=== PATIENT | male | born 1950 | race Caucasian/White ===

== ENCOUNTER 2024-03-23 13:21 | Inpatient (IN) ==
[2024-03-23 14:02] LABS: ABS Lymphocytes 1.3 10^3/uL (1.0-4.8); ABS Monocytes 0.3 10^3/uL (0.0-1.1); ABS Neutrophils 2.1 10^3/uL (1.5-7.6); Hematocrit 41.4 % (38-53); Hemoglobin 14.4 g/dL (13.2-16.3); Lymphocyte % 34.5 %; Mean Corpuscular Hemoglobin 32.3 pg (27-33); Mean Corpuscular Hgb Conc 34.6 g/dL (31-36); Mean Corpuscular Volume 93.3 fL (80-97); Mean Platelet Volume 6.8 fL (7.5-11.2); Platelet Count 209 10^3/uL (150-450); Red Blood Count 4.44 10^6/uL (4.06-5.63); Red Cell Distribution Width 13.8 % (12-17); White Blood Count 3.9 10^3/uL (3.6-10.2)
[2024-03-23 14:13] LABS: INR 0.95 (0.83-1.13)
[2024-03-23] MEDS: TENECTEPLASE 50 MG VIAL KIT 5 MG/ML (reconstituted) IV ONE ×2 (14:22→14:28)
[2024-03-23 14:34] LABS: Albumin 4.1 g/dL (3.2-5.2); Albumin/Globulin Ratio 1.8 (1-3); Calcium 8.5 mg/dL (8.6-10.3); Creatinine, Serum 0.83 mg/dL (0.67-1.17); Globulin 2.3 g/dL (2-4); Potassium 3.3 mmol/L (3.5-5.0); Total Bilirubin 0.6 mg/dL (0.2-1.0); Total Protein 6.4 g/dL (6.4-8.9); eGFR CKD-EPI 92.4 (>60)
[2024-03-23 14:36] LABS: Calcium 8.7 mg/dL (8.6-10.3); Creatinine, Serum 0.85 mg/dL (0.67-1.17); Potassium 3.3 mmol/L (3.5-5.0); eGFR CKD-EPI 91.8 (>60)
[2024-03-23] MEDS: Lactated Ringers 1000 ml BAG 1,000 ML IV ONE (14:41)
[2024-03-23 14:42] LABS: Albumin 4.3 g/dL (3.2-5.2); Albumin/Globulin Ratio 1.8 (1-3); Direct Bilirubin 0.1 mg/dL (0.03-0.18); Globulin 2.4 g/dL (2-4); HDL Cholesterol 152.7 mg/dL; Indirect Bilirubin 0.5 mg/dL (0.3-1.0); Total Bilirubin 0.6 mg/dL (0.2-1.0); Total Protein 6.7 g/dL (6.4-8.9)
[2024-03-23] MEDS ORDERED: Lorazepam PYXIS KEY PRN (15:25)
[2024-03-23 15:36] LABS: High Sensitivity Troponin 1 Hr 5 pg/mL (<20)
[2024-03-23 15:39] LABS: Urine Appearance Clear; Urine Bilirubin Negative (Negative); Urine Blood Negative (Negative); Urine Color Yellow; Urine Glucose Negative (Negative); Urine Ketones Negative (Negative); Urine Nitrite Negative (Negative); Urine Protein Trace (Negative); Urine Urobilinogen Negative (Negative); Urine pH 8.5 (5.0-8.0)
[2024-03-23] MEDS ORDERED: LORazepam 2 mg VIAL 1 ml IV PUSH SCH (16:00)
[2024-03-23] MEDS ORDERED: Labetalol IV 5 MG/ML 20 ml VIAL IV PUSH PRN (16:03)
[2024-03-23] MEDS ORDERED: Famotidine IV 10 MG/ML 2 ml VIAL (20 mg) IV SLOW PU PRN (16:07)
[2024-03-23] MEDS ORDERED: methylPREDNISolone SOD SUCC 40 mg/ml 1 ml VIAL IV PRN (16:08)
[2024-03-23] MEDS: Thiamine 100 MG/ML 2 ml VIAL (200 mg) IM ONE (16:39)
[2024-03-23] MEDS: Multivitamins/Minerals TAB PO SCH (16:39)
[2024-03-23] MEDS: Iodixanol 320 (CONTRAST) 100 ML SDV IV ONE (17:17)
[2024-03-23] MEDS: Thiamine 100 MG/ML 2 ml VIAL 500 MG in NS 0.9% 250 ml 250 ML IV SCH (20:26)
[2024-03-24] MEDS: Senna TAB 8.6 mg TAB PO PRN (04:06)
[2024-03-24 04:36] LABS: ABS Monocytes 0.5 10^3/uL (0.0-1.1); ABS Neutrophils 4.1 10^3/uL (1.5-7.6); Eosinophil % 0.6 %; Hematocrit 33.3 % (38-53); Hemoglobin 11.7 g/dL (13.2-16.3); Lymphocyte % 17.6 %; Mean Corpuscular Hemoglobin 32.4 pg (27-33); Mean Corpuscular Hgb Conc 35.1 g/dL (31-36); Mean Corpuscular Volume 92.4 fL (80-97); Mean Platelet Volume 7.2 fL (7.5-11.2); Platelet Count 155 10^3/uL (150-450); Red Cell Distribution Width 13.7 % (12-17); White Blood Count 5.7 10^3/uL (3.6-10.2)
[2024-03-24 04:50] LABS: Albumin 3.5 g/dL (3.2-5.2); Albumin/Globulin Ratio 1.8 (1-3); Calcium 8.2 mg/dL (8.6-10.3); Creatinine, Serum 0.76 mg/dL (0.67-1.17); Magnesium 1.6 mg/dL (1.9-2.7); Potassium 3.1 mmol/L (3.5-5.0); Total Bilirubin 1.1 mg/dL (0.2-1.0); Total Protein 5.5 g/dL (6.4-8.9); eGFR CKD-EPI 94.9 (>60)
[2024-03-24 05:26] LABS: Calcium 8.6 mg/dL (8.6-10.3); Creatinine, Serum 0.76 mg/dL (0.67-1.17); Magnesium 1.7 mg/dL (1.9-2.7); eGFR CKD-EPI 94.9 (>60)
[2024-03-24] MEDS: Magnesium Sulfate 2 gm BAG 2 GM/50 ML BAG IVPB ONE (05:44)
[2024-03-24] MEDS: Potassium Chlor 20 meq TAB.ER PO ONE (05:44)
[2024-03-24] MEDS: KCL 20 MEQ/100 ML IVPREMIX 20 MEQ/100 ML BAG IV SCH (05:45)
[2024-03-24 08:11] LABS: Phosphorus 2.5 mg/dL (2.5-5.0)
[2024-03-24] MEDS: LORazepam 2 mg VIAL 1 ml IV PUSH SCH (16:01)
[2024-03-24] MEDS: Enoxaparin 40 MG/0.4 ML SYR SUBCUT SCH (16:09)
[2024-03-24] MEDS: Sulfur Hexaflouride MICROSPHR 25 MG VIAL IV ONE (19:56)
[2024-03-25 04:23] LABS: ABS Eosinophils 0.1 10^3/uL (0.0-0.5); ABS Lymphocytes 0.9 10^3/uL (1.0-4.8); ABS Monocytes 0.4 10^3/uL (0.0-1.1); ABS Neutrophils 2.3 10^3/uL (1.5-7.6); Hematocrit 34.7 % (38-53); Hemoglobin 12.1 g/dL (13.2-16.3); Lymphocyte % 24.5 %; Mean Corpuscular Hemoglobin 32.5 pg (27-33); Mean Corpuscular Hgb Conc 34.8 g/dL (31-36); Mean Corpuscular Volume 93.5 fL (80-97); Mean Platelet Volume 7.3 fL (7.5-11.2); Platelet Count 141 10^3/uL (150-450); Red Blood Count 3.72 10^6/uL (4.06-5.63); Red Cell Distribution Width 14.2 % (12-17); White Blood Count 3.7 10^3/uL (3.6-10.2)
[2024-03-25 06:00] LABS: Calcium 8.6 mg/dL (8.6-10.3); Creatinine, Serum 0.76 mg/dL (0.67-1.17); Potassium 4.4 mmol/L (3.5-5.0); eGFR CKD-EPI 94.9 (>60)
[2024-03-25] MEDS: Aspirin EC 81 mg TAB.EC (enteric coated) PO SCH (09:39)
[2024-03-25 12:18] VITALS: BP 133/86
== END 2024-03-25 14:45 | disposition home or self-care (01) | DRG 897 ==
LOC: ED 13:21 → SUATTDRO 15:16 → EDHOLD 15:16 → ICU 16:48
PROVIDERS: ADMIT Hospitalist; ATTEND Student in an Organized Health Care Education/Training Program